=== PATIENT | male | born 1955 | race Caucasian/White ===

== ENCOUNTER 2017-04-12 18:18 | Emergency (ER) | payer MEDICARE ==
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
[2017-04-12] MEDS ORDERED: Multivitamin Inj 10 ML, Thiamine HCL 100 MG, Magnesium Sulfate 2 GM, Folic Acid 1 MG in... IV ONE (18:31)
[2017-04-12] MEDS ORDERED: Magnesium Sulfate 1 gm/2 mL 2mL Vial IV ONE (18:46)
[2017-04-12] MEDS ORDERED: Thiamine 100 mg/mL 2mL Vial ONE (18:46)
[2017-04-12] MEDS ORDERED: Multivitamin Inj 10 mL Vial IV ONE (18:47)
[2017-04-12 18:48] LABS: % BASOPHILS 0.6 % (0.0-2.0); % EOSINOPHILS 0.1 % (0.0-5.0); % LYMPHOCYTES 29.1 % (20.0-50.0); % MONOCYTES 7.6 % (2.0-10.0); % NEUTROPHILS 62.6 % (40.0-80.0); LYMPHOCYTE ABSOLUTE 1.6 Th/cmm (1.5-3.0); MEAN CELL VOLUME 92.8 fl (80-99); MEAN CORPUSCULAR HEMOGLOBIN 30.9 pg (26.0-30.0); MEAN CORPUSCULAR HGB CONC 33.3 pg (28.0-36.0); MEAN PLATELET VOLUME 8.5 fl; MONOCYTE ABSOLUTE 0.4 Th/cmm (0.3-1.0); NEUTROPHILE ABSOLUTE 3.5 Th/cmm (1.8-8.0); RED BLOOD COUNT 4.84 Mil/cmm (4.30-5.70); RED CELL DISTRIBUTION WIDTH 13.4 % (11.5-20.0); WHITE BLOOD COUNT 5.5 Th/cmm (4.8-10.8)
[2017-04-12 18:49] LABS: HEMATOCRIT 44.9 % (41.0-60); PLATELET COUNT 176 Th/cmm (150-400)
[2017-04-12 19:02] LABS: INR 0.95 (0.5-1.4); PROTHROMBIN TIME (TEST) 9.9 SECONDS (9.5-11.5)
[2017-04-12 19:04] LABS: ALB/GLOB RATIO 1.5 (1.0-1.8); ALBUMIN 4.3 gm/dL (4.2-5.5); ALKALINE PHOSPHATASE 99 U/L (34-104); ANION GAP 10.5 (7.0-16.0); BILIRUBIN,TOTAL 0.6 mg/dL (0.3-1.0); BUN - UREA NITROGEN 15 mg/dL (7-25); CALCIUM SERUM 9.2 mg/dL (8.6-10.3); CARBON DIOXIDE 24.8 mEq/L (21.0-31.0); CHLORIDE 100 mEq/L (98-107); CREATININE - SERUM 0.8 mg/dL (0.7-1.3); GFR AFRICAN-AMERICAN > 60.0 ml/min (>90); GFR NON AFRICAN-AMERICAN > 60.0 ml/min; GLUCOSE 100 mg/dL; POTASSIUM SERUM 3.3 mEq/L (3.5-5.1); SGOT 28 U/L (13-39); SGPT/ALT 24 U/L (7-52); SODIUM SERUM 132 mEq/L (136-145); TOTAL PROTEIN,SERUM 7.2 gm/dL (6.0-8.3)
[2017-04-12] MEDS ORDERED: Potassium Chloride 20 mEq ER Tab PO ONE ×2 (21:23→21:37)
== END 2017-04-13 02:41 | disposition left against medical advice (07) ==
LOC: ER 18:18
DX: F10.129 Alcohol abuse with intoxication, unspecified (principal); E87.6 Hypokalemia
CPT/HCPCS: 36415-UA; 80053-TC; 80320-TC; 82948-90; 85025-TC; 85610-TC; J3411; J3475; J7030; X6226; X6598; Z7502

== ENCOUNTER 2017-12-07 22:25 | Emergency (ER) | payer MEDICARE ==
[2017-12-07 23:35] LABS: HEMATOCRIT 43.5 % (41.0-60); HEMOGLOBIN 14.7 gm/dL (12-16)
[2017-12-07 23:44] LABS: MEAN CELL VOLUME 93.1 fl (80-99); MEAN CORPUSCULAR HEMOGLOBIN 31.4 pg (26.0-30.0); MEAN CORPUSCULAR HGB CONC 33.7 pg (28.0-36.0); MEAN PLATELET VOLUME 7.4 fl; PLATELET COUNT 195 Th/cmm (150-400); RED BLOOD COUNT 4.68 Mil/cmm (4.30-5.70); RED CELL DISTRIBUTION WIDTH 14.3 % (11.5-20.0); WHITE BLOOD COUNT 4.5 Th/cmm (4.8-10.8)
[2017-12-07 23:45] LABS: MANUAL DIFF REQUIRED? YES
[2017-12-07 23:51] LABS: ALB/GLOB RATIO 1.5 (1.0-1.8); ALKALINE PHOSPHATASE 74 U/L (34-104); ANION GAP 12.5 (7.0-16.0); BILIRUBIN,TOTAL 0.5 mg/dL (0.3-1.0); BUN - UREA NITROGEN 13 mg/dL (7-25); CALCIUM SERUM 8.8 mg/dL (8.6-10.3); CARBON DIOXIDE 25.4 mEq/L (21.0-31.0); CHLORIDE 95 mEq/L (98-107); CREATININE - SERUM 1.1 mg/dL (0.7-1.3); GFR AFRICAN-AMERICAN > 60.0 ml/min (>90); GFR NON AFRICAN-AMERICAN > 60.0 ml/min; GLUCOSE 116 mg/dL (70-105); INR 0.97 (0.5-1.4); PROTHROMBIN TIME (TEST) 10.1 SECONDS (9.5-11.5); SGOT 43 U/L (13-39); SGPT/ALT 30 U/L (7-52); SODIUM SERUM 130 mEq/L (136-145); TOTAL PROTEIN,SERUM 6.7 gm/dL (6.0-8.3)
[2017-12-07 23:55] LABS: POTASSIUM SERUM 2.9 mEq/L (3.5-5.1)
[2017-12-08] MEDS ORDERED: Potassium Phosphate 20 MMOLE in Sodium Chloride 0.9% 250 ML IV ONE (00:03)
[2017-12-08 00:05] LABS: BAND NEUTROPHILE 4 % (0-10); EOSINOPHIL 1 % (0-5); LYMPHOCYTE 52 % (20-50); MONOCYTE 6 % (2-10); NEUTROPHILS 37 % (40-80); PLATELET ESTIMATE ADEQUATE (NORMAL); TOTAL CELLS COUNTED 100
[2017-12-08] MEDS ORDERED: KCL 20mEq/100mL Premix 20 MEQ/100 ML PIGGYBACK IV ONE (00:10)
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
[2017-12-08] MEDS: KCL 20mEq/100mL Premix 20 MEQ/100 ML PIGGYBACK IV ONE (00:22)
[2017-12-08] MEDS: Sodium Chloride 0.45% 1,000 ML IV ONE (02:33)
[2017-12-08] MEDS ORDERED: cefTRIAXone 1 GM in Sodium Chloride 0.9% 50 ML IV ONE (06:05)
--- NOTE | 2017-12-08 07:53 | Diagnostic Imaging Report ---
Head CT without intravenous contrast Indication: Trauma Comparison: Head CT 09/27/2013 Technique: Axial images were obtained from the vertex to the skull base without IV contrast. Coronal reconstructions were made. Total DLP: 999, CTDI 50.6 FINDINGS: Images of the brain obtained without contrast demonstrate no evidence of an acute hemorrhage. Diffuse atrophy is noted. The gonzalez-white matter differentiation is preserved. The ventricles and basal cisterns are patent. No mass effect or midline shift. No evidence of a skull fracture or focal soft tissue swelling. There is mucosal thickening in the paranasal sinuses. Chronic appearing nasal fractures are seen as seen on prior exam. IMPRESSION: No evidence of acute intracranial hemorrhage. Atrophy.
== END 2017-12-08 08:15 | disposition home or self-care (01) ==
LOC: ER 22:25
DX: S02.2XXA Fracture of nasal bones, initial encounter for closed fracture (principal); F10.129 Alcohol abuse with intoxication, unspecified; Z59.0 Homelessness; W19.XXXA Unspecified fall, initial encounter; Y93.89 Activity, other specified; Y92.89 Other specified places as the place of occurrence of the external cause; Y99.8 Other external cause status
CPT/HCPCS: 99285; 96372; 96374; 70450; 84484; 36415; 84443; 85007; 85027; 85025; 85610; 80320; 80053; J2060; J3480; J0696

== ENCOUNTER 2018-02-25 21:42 | Emergency (ER) | payer MEDICARE ==
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
[2018-02-25] MEDS ORDERED: Multivitamin Inj 10 ML, Thiamine HCL 100 MG, Magnesium Sulfate 2 GM, Folic Acid 1 MG in... IV ONE (22:24)
[2018-02-25] MEDS ORDERED: Thiamine 100 mg/mL 2mL Vial ONE (22:32)
[2018-02-25] MEDS ORDERED: Magnesium Sulfate 1 gm/2 mL 2mL Vial IV ONE (22:32)
[2018-02-25] MEDS ORDERED: Multivitamin Inj 10 mL Vial IV ONE (22:33)
[2018-02-25 22:35] LABS: HEMATOCRIT 43.3 % (41.0-60); HEMOGLOBIN 14.7 gm/dL (12-16); MEAN CELL VOLUME 96.1 fl (80-99); MEAN CORPUSCULAR HEMOGLOBIN 32.5 pg (26.0-30.0); MEAN CORPUSCULAR HGB CONC 33.9 pg (28.0-36.0); MEAN PLATELET VOLUME 7.8 fl; PLATELET COUNT 124 Th/cmm (150-400); RED BLOOD COUNT 4.51 Mil/cmm (4.30-5.70); RED CELL DISTRIBUTION WIDTH 14.9 % (11.5-20.0)
[2018-02-25 22:49] LABS: AMPHETAMINE URINE NEGATIVE (NEGATIVE); BARBITURATES URINE NEGATIVE (NEGATIVE); BENZODIAZEPINES QUAL URINE NEGATIVE (NEGATIVE); CANNABINOID THC NEGATIVE (NEGATIVE); COCAINE METABOLITE QUAL URINE NEGATIVE (NEGATIVE); METHADONE URINE NEGATIVE (NEGATIVE); METHAMPHETAMINES QUAL URINE NEGATIVE (NEGATIVE); OPIATES (MORPHINE) QUAL. URINE NEGATIVE (NEGATIVE); PHENCYCLIDINE (PCP) URINE NEGATIVE (NEGATIVE); TRICYCLICS (TCA) QUAL. URINE NEGATIVE (NEGATIVE)
[2018-02-25 22:50] LABS: ACETAMINOPHEN < 10.0 ug/mL (10.0-30.0); ANION GAP 13.6 (7.0-16.0); BUN - UREA NITROGEN 9 mg/dL (7-25); CALCIUM SERUM 9.2 mg/dL (8.6-10.3); CARBON DIOXIDE 25.2 mEq/L (21.0-31.0); CHLORIDE 98 mEq/L (98-107); CREATININE - SERUM 0.7 mg/dL (0.7-1.3); GFR AFRICAN-AMERICAN > 60.0 ml/min (>90); GFR NON AFRICAN-AMERICAN > 60.0 ml/min; GLUCOSE 100 mg/dL (70-105); MAGNESIUM 2.1 mg/dL (1.9-2.7); POTASSIUM SERUM 3.8 mEq/L (3.5-5.1); SALICYLATES (ASPIRIN) < 25.0 mg/L (30.0-100.0); SODIUM SERUM 133 mEq/L (136-145)
[2018-02-25 22:56] LABS: WHITE BLOOD COUNT 3.5 Th/cmm (4.8-10.8)
[2018-02-25 23:23] LABS: LYMPHOCYTE 53 % (20-50); MONOCYTE 3 % (2-10); NEUTROPHILS 44 % (40-80)
[2018-02-25 23:25] LABS: PLATELET ESTIMATE ADEQUATE (NORMAL)
--- NOTE | 2018-02-26 11:24 | Diagnostic Imaging Report ---
Abdominal ultrasound HISTORY: Pain The liver exhibits a homogeneous parenchyma. No focal lesions. There is a distended gallbladder. Echogenic intraluminal density seen within the dependent region of the gallbladder. Findings consistent with cholelithiasis. No biliary dilatation. The pancreas cannot be seen due to bowel gas. The kidneys appear normal bilaterally. No other retroperitoneal or intra-abdominal abnormalities. IMPRESSION: 1. Somewhat limited exam due to lack of patient cooperation 2. Findings consistent with cholelithiasis
== END 2018-02-26 10:07 | disposition left against medical advice (07) ==
LOC: ER 21:42
DX: F10.129 Alcohol abuse with intoxication, unspecified (principal); D72.819 Decreased white blood cell count, unspecified; R45.851 Suicidal ideations; Y90.8 Blood alcohol level of 240 mg/100 ml or more; I10 Essential (primary) hypertension; F32.9 Major depressive disorder, single episode, unspecified; Z59.0 Homelessness
CPT/HCPCS: 99285; 96365; 96366; 36415; 83605 ×2; 80307; 85007; 85025; 80329 ×2; 80320; 83735; 80048; 76700; J3411; J3475; X6598